=== PATIENT | male | born 1975 | race Caucasian/White ===

== ENCOUNTER 2017-02-19 03:50 | Emergency (ER) | payer SELFPAY ==
[~2017-02-19] VITALS: Ht 160 cm; Wt 86.2 kg
[2017-02-19 03:57] VITALS: BP 123/71
--- NOTE | 2017-02-19 04:00 | NUR ---
TO LOBBY , KAREN , V/S STABLE, A/W BED, ERMNirali NOTED
--- NOTE | 2017-02-19 05:30 | NUR ---
COMPLAINED OF SOB , CHECKED V/S , SAO2 99%, 81, 106/ 77, 17
--- NOTE | 2017-02-19 05:35 | NUR ---
PATIENT CALLED TO BED , NO RESPONSE
--- NOTE | 2017-02-19 05:40 | NUR ---
CALLED FOR THE SECOND TIME , NO ANSWER
--- NOTE | 2017-02-19 05:45 | NUR ---
CALLED FOR THE THIRD TIME, NO RESPONSE, PATIENT LEFT WITHOUT BEING SEEN BY DR. PADILLA. NO FURTHER CARE PROVIDED FOR PATIENT.
== END 2017-02-19 05:45 | disposition left against medical advice (07) ==
LOC: MED 03:50
DX: R05 Cough (principal); R09.81 Nasal congestion; Z53.21 Procedure and treatment not carried out due to patient leaving prior to being seen by health care provider

== ENCOUNTER 2021-06-04 21:56 | Emergency (ER) | payer SELFPAY ==
--- NOTE | 2021-06-04 22:26 | NUR ---
CALLED FOR PATIENT NO ANSWER
--- NOTE | 2021-06-04 22:28 | NUR ---
PATIENT LEFT WITHOUT BEING SEEN BY DR. BLUM. NO FURTHER CARE PROVIDED FOR PATIENT.
--- NOTE | 2021-06-04 22:28 | NUR ---
CALLED FOR PATIENT NO ANSWER
== END 2021-06-04 22:26 | disposition left against medical advice (07) ==
LOC: MED 21:56
DX: J11.1 Influenza due to unidentified influenza virus with other respiratory manifestations (principal); Z53.21 Procedure and treatment not carried out due to patient leaving prior to being seen by health care provider